=== PATIENT | male | born 1950 | race Caucasian/White ===

== ENCOUNTER → 2023-04-17 | Outpatient (CLI) | payer MEDICARE, OTHER | END | disposition home or self-care (01) | LOC: RESCLI 12:59 | PROVIDERS: ATTEND Internal Medicine | DX: H81.10 Benign paroxysmal vertigo, unspecified ear (principal); G25.81 Restless legs syndrome; M54.30 Sciatica, unspecified side; G47.33 Obstructive sleep apnea (adult) (pediatric); I26.99 Other pulmonary embolism without acute cor pulmonale; N40.0 Benign prostatic hyperplasia without lower urinary tract symptoms; Z87.891 Personal history of nicotine dependence; Z88.8 Allergy status to other drugs, medicaments and biological substances; Z98.890 Other specified postprocedural states; Z79.899 Other long term (current) drug therapy ==